=== PATIENT | male | born 1955 ===

== ENCOUNTER → 2019-09-17 | Outpatient (CLI) | payer OTHER | END | disposition home or self-care (01) | LOC: RAD 16:13 | DX: R07.89 Other chest pain (principal) ==

== ENCOUNTER 2021-08-11 14:32 | Outpatient (CLI) | payer OTHER | END 2021-08-11 14:44 | disposition home or self-care (01) | LOC: MAMO-SONO 14:32 | PROVIDERS: ATTEND Internal Medicine | DX: N64.59 Other signs and symptoms in breast (principal); Z12.31 Encounter for screening mammogram for malignant neoplasm of breast ==

== ENCOUNTER 2022-11-26 08:49 | Outpatient (CLI) | payer OTHER | END 2022-11-26 08:58 | disposition home or self-care (01) | LOC: RAD 08:49 | DX: J18.9 Pneumonia, unspecified organism (principal) ==

== ENCOUNTER 2024-02-16 08:58 | Outpatient (CLI) | payer OTHER | END 2024-02-16 09:03 | disposition home or self-care (01) | LOC: RAD 08:58 | PROVIDERS: ATTEND Physical Medicine & Rehabilitation Hospice and Palliative Medicine | DX: M16.11 Unilateral primary osteoarthritis, right hip (principal); M16.12 Unilateral primary osteoarthritis, left hip ==

== ENCOUNTER → 2025-02-02 08:41 | Outpatient (CLI) | payer OTHER ==
[2025-02-02 10:37] LABS: CALCIUM 9.7 mg/dL (8.5-10.1); CREATININE SERUM 1.06 mg/dL (0.70-1.30); GFR 69.07; POTASSIUM 3.84 mEq/L (3.5-5.1)
[2025-02-02 10:52] LABS: PROSTATIC SPECIFIC ANTIGEN 12.1 NG/ML (0.010-4.00)
[2025-02-05 13:09] LABS: % FREE PSA 21.6 % (.); free psa 2.42 ng/mL; total psa 11.2 ng/mL (0.0-4.0)
== END | disposition home or self-care (01) ==
LOC: LAB 08:41
DX: Z91.041 Radiographic dye allergy status (principal)